=== PATIENT | female | born 2000 | race Caucasian/White ===

== ENCOUNTER 2022-07-18 00:45 | Emergency (ER) | payer BC ==
[2022-07-18] MEDS ORDERED: hydrOXYzine 25 MG TAB ONE (01:10)
== END 2022-07-18 01:46 | disposition home or self-care (01) ==
LOC: CSHERS 00:45
DX: F41.0 Panic disorder [episodic paroxysmal anxiety] (principal); T65.891A Toxic effect of other specified substances, accidental (unintentional), initial encounter
CPT/HCPCS: 93005

== ENCOUNTER 2023-03-14 01:56 | Emergency (ER) | payer BC ==
[2023-03-14] MEDS ORDERED: Acetaminophen 500 MG TAB ONE (02:35)
[2023-03-14] MEDS ORDERED: Mag-Al Plus 1200 MG/1200 MG/120 MG/30 ML UDCUP ONE (02:35)
== END 2023-03-14 03:13 | disposition home or self-care (01) ==
LOC: CSHERS 01:56
DX: R07.9 Chest pain, unspecified (principal); R06.02 Shortness of breath; F17.290 Nicotine dependence, other tobacco product, uncomplicated
CPT/HCPCS: 93005